=== PATIENT | male | born 1975 | race Caucasian/White ===

== ENCOUNTER 2017-01-23 07:41 | Outpatient (CLI) | payer OTHER ==
--- NOTE | 2017-01-23 13:16 | Ultrasound Report ---
LIMITED PELVIC ULTRASOUND: 01/23/2017 CLINICAL INDICATION: Right groin discomfort. TECHNIQUE: Real-time scanning was performed with civil rights representative static images obtained. FINDINGS: Ultrasound of the region of discomfort identified by the patient was performed. There is no evidence of a hernia. No adenopathy is seen. IMPRESSION: NO EVIDENCE OF A RIGHT GROIN HERNIA. JOB #: [id number] EXT JOB #:[id number]
== END 2017-01-23 07:42 | disposition home or self-care (01) ==
LOC: DI 07:41
PROVIDERS: ATTEND Emergency Medicine Emergency Medical Services
DX: R19.03 Right lower quadrant abdominal swelling, mass and lump (principal)
CPT/HCPCS: 76857